=== PATIENT | female | born 1940 | race Caucasian/White ===

== ENCOUNTER 2017-03-04 10:52 | Outpatient (CLI) | payer OTHER | END 2017-03-04 19:21 | disposition home or self-care (01) | LOC: SMA 10:52 | PROVIDERS: ATTEND Family Medicine | DX: Z12.31 Encounter for screening mammogram for malignant neoplasm of breast (principal) | CPT/HCPCS: G0202 ==

== ENCOUNTER 2017-03-23 15:37 | Outpatient (CLI) | payer OTHER | END 2017-03-23 20:14 | disposition home or self-care (01) | LOC: SRD 15:37 | PROVIDERS: ATTEND Family Medicine | DX: M17.11 Unilateral primary osteoarthritis, right knee (principal) | CPT/HCPCS: 73564 ==

== ENCOUNTER 2018-03-30 13:29 | Outpatient (CLI) | payer OTHER | END 2018-03-30 19:31 | disposition home or self-care (01) | LOC: SMA 13:29 | PROVIDERS: ATTEND Family Medicine | DX: N64.4 Mastodynia (principal); M79.622 Pain in left upper arm | CPT/HCPCS: 76641; 77066 ==

== ENCOUNTER 2018-08-22 14:23 | Outpatient (CLI) | payer OTHER | END 2018-08-22 20:59 | disposition home or self-care (01) | LOC: SRD 14:23 | PROVIDERS: ATTEND Family Medicine | DX: M17.11 Unilateral primary osteoarthritis, right knee (principal); G89.29 Other chronic pain | CPT/HCPCS: 73564 ==